=== PATIENT | female | born 1940 ===

== ENCOUNTER 2024-03-22 13:59 | Outpatient (AMB) | payer MEDICARE, SELFPAY ==
--- NOTE | 2024-03-22 14:21 | A.OFFVIS_ITS ---
Vital Signs 03/22/24 14:26 Height 4 ft 10 in Weight 132 lb BMI 27.6 BP 126/72 Blood Pressure Location Lt brachial Position Sitting Respiration 16 Pulse 75 Pulse Source Pulse Oximeter Pulse Oximetry (%) 95 Oxygen Delivery Method Room Air Intake Visit Reasons: ENP Parkinson - Could not LVM Intake Note: Pt presents to the office for new pt evaluation for Parkinson's. Graduate Research Assistant Required: Yes Graduate Research Assistant Name: Daughter- Tracy Allergies Penicillins Allergy (Mild, Verified 03/22/24 14:22) Rash tramadol Allergy (Mild, Verified 03/22/24 14:22) Hallucinations Medication List - Last Reconciled 03/22/24 by Kimi Meyers MD apixaban (Eliquis) 5 mg PO BID calcium carbonate (Calcium 600) 600 mg PO DAILY ibuprofen (Advil Miguel Strength) 200 mg PO Q6-8H PRN levothyroxine (Synthroid) 88 mcg PO DAILY losartan 100 mg PO DAILY metoprolol succinate ER 25 mg PO DAILY octreotide,microspheres ER (Sandostatin LAR Depot) 20 mg IM Q4W sennosides (Senokot) 8.6 mg PO DAILY HPI Comments Details: 84y/o left handed female comes for further management of Parkinsons disease SHe was diagnosed with Parkinson Disease Sep [address] Du at [facility] . Her initial symptoms were slowness , gait difficulty speech problems etc. ENEDELIA was positive for Parkinsons. she was started on carbidopa/levodopa but had a fall after her first dose so was discontinued . SHe denies memory issues but has some word finding difficulty. she has some dreams , vivid , sleep talks . Dreams about relatives. she denies hallucinations. Mood is stable she is not motivated. Speech- softer, hard to understand Drooling-none Handwriting is smaller Handling utensils- harder , slower Dressing- needs help and is slower Needs help with shower Has trouble changing positions in bed she uses a walker for past 2 years .she has frequent falls . she has constipation . No bladder issues No double vision No dizziness No family h/o parkinsons No h/o head injury , exposure to pesticides , no exposure to neuroleptics, depakote or reglan [facility] Medical History (Updated 03/22/24 @ 15:02 by Kimi Meyers MD) Multifactorial gait disorder Parkinson's disease without dyskinesia Falls frequently Hypothyroidism HTN (hypertension) Obstructive sleep apnea Pulmonary embolism Diastolic dysfunction Lung nodules Hemorrhoids Diverticulosis Hyperlipidemia Syncope Osteoporosis Surgical History History of hip surgery H/O total hysterectomy Family History Father No problems noted. Mother No problems noted. Daughter Ovarian ca Breast CA Daughter TIA (transient ischemic attack) Social History Household Members: None Housing: Apartment Alcohol intake: never Patient Tobacco Use Status: Never used Tobacco Physical Exam Vital Signs: Last Vital Signs Pulse 75 03/22/24 14:26 Resp 16 03/22/24 14:26 BP 126/72 03/22/24 14:26 Pulse Ox 95 03/22/24 14:26 Oxygen Delivery Method Room Air 03/22/24 14:26 BMI result Body Mass Index 27.6 Const General: cooperative, healthy appearing, comfortable and no acute distress Nutritional Appearance: average body habitus Orientation/consciousness: patient oriented x3 Eyes Pupils: Equal, round and reactive pupils present Neuro Other: No tremors Severe hypophonia Moderate bradykinesia Right UE 2 cog wheel rigidity Decreased FFM and foot taps sheron Decreased Upgaze and down gaze Gait - needed help to stand fro wheel chair , walked with walker , narrow based off balance. slowness General: patient oriented x3, moves all extremities and no focal motor deficits Cranial nerves: Yes Facial sensation intact/muscles of mastication intact, Yes Equal, round and reactive pupils present, Yes Nystagmus not present, Yes Normal facial strength present and Yes Midline tongue present Cognition (Neuro): normal cognition Motor exam (neuro): 5/5 motor strength present throughout Deep tendon reflexes (DTR's): Right triceps reflex intensity grade: 1+, Left triceps reflex intensity grade: 1+, Rt Biceps (C5, C6): 1+, Left biceps reflex intensity grade: 1+, Right brachioradialis reflex intensity grade: 1+, Left brachioradialis reflex intensity grade: 1+, Right patellar reflex intensity grade: 1+ and Left patellar reflex intensity grade: 1+ Assessment & Plan Assessment & Plan (1) Parkinson's disease without dyskinesia: Comment: ? Progressive supranuclear palsy Code(s): G20.A1 - Parkinson's disease without dyskinesia, without mention of fluctuations Category: Medical (2) Multifactorial gait disorder: Code(s): R26.89 - Other abnormalities of gait and mobility Category: Medical Plan Reviewed CT scan ENEDELIA and Neurology report from [facility] for review I will trial her on carbidopa/levodopa 25/100 1 /2 tab tid Fall prevention discussed Patient has help for 3 hrs a day and lives alone. Discussed with daughter that due to her falls she needs more supervision . she will call [employer] for more [employer] hours Coding Level of Care Code New Pt Level 4 (97855) Complex EM visit Add On G2211 Diagnoses Parkinson's disease without dyskinesia G20.A1 Multifactorial gait disorder R26.89
[2024-03-22 14:26] VITALS: BP 126/72; PULSE 75; RESP 16; O2SAT 95; BMI 27.6
== END 2024-03-22 15:12 | disposition home or self-care (01) ==
PROVIDERS: PCP Internal Medicine; Visit Provider Psychiatry & Neurology Neurology
DX: G20.A1 Parkinson's disease without dyskinesia, without mention of fluctuations (principal); R26.89 Other abnormalities of gait and mobility
CPT/HCPCS: 99204; G2211

== ENCOUNTER → 2024-03-22 13:59 | Outpatient (BNVA) | payer MEDICARE, SELFPAY | PROVIDERS: PCP Internal Medicine; Visit Provider Psychiatry & Neurology Neurology | DX: G20.A1 Parkinson's disease without dyskinesia, without mention of fluctuations (principal); R26.89 Other abnormalities of gait and mobility | CPT/HCPCS: 99202 ==

== ENCOUNTER 2024-07-13 09:24 | Outpatient (AMB) | payer MEDICARE, SELFPAY ==
--- NOTE | 2024-07-13 09:26 | A.OFFVIS_ITS ---
Vital Signs 07/13/24 09:28 Height 4 ft 10 in Weight 130 lb BMI 27.2 BP 120/70 Blood Pressure Location Rt brachial Position Sitting Respiration 17 Pulse 56 Pulse Source Pulse Oximeter Pulse Oximetry (%) 96 Oxygen Delivery Method Room Air Intake Visit Reasons: follow up Parkinson - CONF Intake Note: Pt presents to the office for 4 month follow up for Parkinson's. Textile Screen Maker Required: No Allergies Penicillins Allergy (Mild, Verified 07/13/24 09:27) Rash tramadol Allergy (Mild, Verified 07/13/24 09:27) Hallucinations Medication List - Last Reconciled 07/13/24 by Kimi Meyers MD apixaban (Eliquis) 5 mg PO BID calcium carbonate (Calcium 600) 600 mg PO DAILY ibuprofen (Advil Miguel Strength) 200 mg PO Q6-8H PRN levothyroxine (Synthroid) 88 mcg PO DAILY losartan 100 mg PO DAILY metoprolol succinate ER 25 mg PO DAILY octreotide,microspheres ER (Sandostatin LAR Depot) 20 mg IM Q4W rasagiline 1 mg PO DAILY sennosides (Senokot) 8.6 mg PO DAILY HPI Comments Details: 84y/o left handed female comes for follow up of Parkinsons disease.she is in [facility] term facility now an dis doing good. No falls. she is mostly wheelchair bound She garcía s2 [employer] classes a week she could not tolerate carbidopa/levodopa. History from initial visit- SHe was diagnosed with Parkinson Disease Sep [address] Du at [facility] . Her initial symptoms were slowness , gait difficulty speech problems etc. ENEDELIA was positive for Parkinsons. she was started on carbidopa/levodopa but had a fall after her first dose so was discontinued . SHe denies memory issues but has some word finding difficulty. she has some dreams , vivid , sleep talks . Dreams about relatives. she denies hallucinations. Mood is stable she is not motivated. Speech- softer, hard to understand Drooling-none Handwriting is smaller Handling utensils- harder , slower Dressing- needs help and is slower Needs help with shower Has trouble changing positions in bed she uses a walker for past 2 years .she has frequent falls . she has constipation . 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 Mother No problems noted. Daughter Ovarian ca Breast CA Daughter TIA (transient ischemic attack) Social History Household Members: None Housing: Apartment Alcohol intake: never Patient Tobacco Use Status: Never used Tobacco Physical Exam Vital Signs: Last Vital Signs Pulse 56 07/13/24 09:28 Resp 17 07/13/24 09:28 BP 120/70 07/13/24 09:28 Pulse Ox 96 07/13/24 09:28 Oxygen Delivery Method Room Air 07/13/24 09:28 BMI result Body Mass Index 27.2 Const General: cooperative, healthy appearing, comfortable and no acute distress Nutritional Appearance: average body habitus Orientation/consciousness: patient oriented x3 Eyes Pupils: Equal, round and reactive pupils present Neuro Other: No tremors Moderate hypophonia Moderate bradykinesia Right UE 2 cog wheel rigidity Decreased FFM and foot taps sheron R>L Decreased Upgaze and down gaze General: patient oriented x3, moves all extremities and no focal motor deficits Cranial nerves: Yes Facial sensation intact/muscles of mastication intact, Yes Equal, round and reactive pupils present, Yes Nystagmus not present, Yes Normal facial strength present and Yes Midline tongue present Cognition (Neuro): normal cognition Motor exam (neuro): 5/5 motor strength present throughout Assessment & Plan Assessment & Plan (1) Parkinson's disease without dyskinesia: Comment: ? Progressive supranuclear palsy Code(s): G20.A1 - Parkinson's disease without dyskinesia, without mention of fluctuations Category: Medical Qualifiers: Fluctuating manifestations: without fluctuating manifestations Qualified Code(s): G20.A1 - Parkinson's disease without dyskinesia, without mention of fluctuations (2) Multifactorial gait disorder: Code(s): R26.89 - Other abnormalities of gait and mobility Category: Medical Plan ENEDELIA and Neurology report from [facility] for review PT and speech therapy I will trial her on Rasagiline 1mg qd Fall prevention discussed Medications: New rasagiline 1 mg PO DAILY 30 tabs 0RF Discontinued carbidopa-levodopa 25-100 mg Discontinued Reason: Patient no longer taking 0.5 tabs PO TID 90 tabs 2RF Coding Level of Care Code Est Pt Level 4 (06701) Complex EM visit Add On G2211 Diagnoses Parkinson's disease without dyskinesia or fluctuating manifestations G20.A1 Fluctuating manifestations: without fluctuating manifestations Multifactorial gait disorder R26.89
[2024-07-13 09:28] VITALS: BP 120/70; PULSE 56; RESP 17; O2SAT 96; BMI 27.2
== END 2024-07-13 09:51 | disposition home or self-care (01) ==
PROVIDERS: PCP Internal Medicine; Visit Provider Psychiatry & Neurology Neurology
DX: G20.A1 Parkinson's disease without dyskinesia, without mention of fluctuations (principal); R26.89 Other abnormalities of gait and mobility
CPT/HCPCS: 99214; G2211

== ENCOUNTER → 2024-07-13 09:24 | Outpatient (BNVA) | payer MEDICARE, SELFPAY | PROVIDERS: PCP Internal Medicine; Visit Provider Psychiatry & Neurology Neurology | DX: G20.A1 Parkinson's disease without dyskinesia, without mention of fluctuations (principal); R26.89 Other abnormalities of gait and mobility | CPT/HCPCS: 99212 ==

== ENCOUNTER 2025-01-27 09:44 | Outpatient (AMB) | payer MEDICARE, SELFPAY ==
--- NOTE | 2025-01-27 09:47 | MHC.OFFVIS ---
Vital Signs 01/27/25 09:51 Height 4 ft 10 in Weight 124 lb BMI 25.9 Pulse 60 Pulse Source Pulse Oximeter Pulse Oximetry (%) 98 Oxygen Delivery Method Room Air Intake Visit Reasons: follow up Parkinson Intake Note: follow up trial rasagiline. ENEDELIA scan [facility] 09/11/23 speech & PT done at facility requested copy to be faxed over. Allergies Penicillins Allergy (Mild, Verified 01/27/25 10:00) Rash tramadol Allergy (Mild, Verified 01/27/25 10:00) Hallucinations HPI Comments Details: 85y/o left handed female comes for follow up of Parkinsons disease.she is in [facility] term facility now and is doing good. No falls. she is mostly wheelchair bound She does 2 [employer] classes a week she could not tolerate carbidopa/levodopa. History from initial visit- SHe was diagnosed with Parkinson Disease Sep [address] Du at [facility] . Her initial symptoms were slowness , gait difficulty speech problems etc. ENEDELIA was positive for Parkinsons. she was started on carbidopa/levodopa but had a fall after her first dose so was discontinued . SHe denies memory issues but has some word finding difficulty. she has some dreams , vivid , sleep talks . Dreams about relatives. she denies hallucinations. Mood is stable she is not motivated. Speech- softer, hard to understand Drooling-none Handwriting is smaller Handling utensils- harder , slower Dressing- needs help and is slower Needs help with shower Has trouble changing positions in bed she uses a walker for past 2 years .she has frequent falls . she has constipation . No bladder issues No double vision No dizziness No family h/o parkinsons No h/o head injury , exposure to pesticides , no exposure to neuroleptics, depakote or reglan [facility] Medical History Cholelithiases Multifactorial gait disorder Parkinson's disease without dyskinesia Falls frequently Hypothyroidism HTN (hypertension) Obstructive sleep apnea Pulmonary embolism Diastolic dysfunction Lung nodules Hemorrhoids Diverticulosis Hyperlipidemia Syncope Osteoporosis Surgical History History of hip surgery H/O total hysterectomy Family History Father No problems noted. Mother No problems noted. Daughter Ovarian ca Breast CA Daughter TIA (transient ischemic attack) Social History Household Members: None Housing: Apartment Alcohol intake: never Patient Tobacco Use Status: Never used Tobacco Physical Exam Vital Signs: Last Vital Signs Pulse 60 01/27/25 09:51 Pulse Ox 98 01/27/25 09:51 Oxygen Delivery Method Room Air 01/27/25 09:51 Const General: cooperative, healthy appearing, comfortable and no acute distress Nutritional Appearance: average body habitus Orientation/consciousness: patient oriented x3 Eyes Pupils: Equal, round and reactive pupils present Neuro Other: No tremors Moderate to severe hypophonia Moderate bradykinesia Right UE 2 cog wheel rigidity Decreased FFM and foot taps sheron R>L Decreased Upgaze and down gaze General: patient oriented x3, moves all extremities and no focal motor deficits Cranial nerves: Yes Facial sensation intact/muscles of mastication intact, Yes Equal, round and reactive pupils present, Yes Nystagmus not present, Yes Normal facial strength present and Yes Midline tongue present Cognition (Neuro): normal cognition Motor exam (neuro): 5/5 motor strength present throughout Assessment & Plan Assessment & Plan (1) Parkinson's disease without dyskinesia: Comment: ? Progressive supranuclear palsy Code(s): G20.A1 - Parkinson's disease without dyskinesia, without mention of fluctuations Category: Medical Qualifiers: Fluctuating manifestations: without fluctuating manifestations Qualified Code(s): G20.A1 - Parkinson's disease without dyskinesia, without mention of fluctuations (2) Multifactorial gait disorder: Code(s): R26.89 - Other abnormalities of gait and mobility Category: Medical Plan ENEDELIA scan report from 2022 - shows sheron decrease duptake c/w parkinsons, PSP , MSa etc PT to help with ROM . Speech therapy Continue Rasagiline 1mg qd Fall prevention discussed Coding Level of Care Code Est Pt Level 4 (42084) Complex EM visit Add On G2211 Diagnoses Parkinson's disease without dyskinesia or fluctuating manifestations G20.A1 Fluctuating manifestations: without fluctuating manifestations Multifactorial gait disorder R26.89
[2025-01-27 09:51] VITALS: PULSE 60; O2SAT 98; BMI 25.9
--- OUTSIDE RECORDS SUMMARY | 2025-01-27 11:54 | XMS_ITS | Clinical Summary ---
Author Organization [facility] Address [address] [place] [address] Care Team Providers Care Director Internal Audit Name Role Phone Rosa Zapata MD Primary Care Provider [phone] Allergies Active Allergy Reactions Criticality Noted Date Comments Penicillins 04/13/2024 Tramadol 04/13/2024 Medications Medication Sig Dispensed Refills Start Date End Date Status metoprolol succinate (TOPROL-XL) 24 hr tablet 25 mg Take by mouth daily. 0 Active levothyroxine (SYNTHROID) tablet 88 mcg Take 1 tablet (88 mcg total) by mouth every morning on an empty stomach. 0 Active Calcium Carb-Cholecalciferol (CALCIUM 600+D3 PO) Take by mouth. 0 A ctive Octreotide Acetate (SANDOSTATIN IJ) Inject as directed every 28 days. 0 Active apixaban (ELIQUIS) 5 MG TABS tablet Take by mouth every 12 (twelve) hours. 0 Active polyethylene glycol (MIRALAX) 17 g packet Take 17 g by mouth daily. 0 Active losartan (COZAAR) tablet 25 mg Take 1 tablet (25 mg total) by mouth daily. 0 Active docusate sodium (COLACE) 100 MG capsule Take 1 capsule (100 mg total) by mouth 2 (two) times a day. 0 Active magnesium hydroxide (MILK OF MAGNESIA) 400 MG/5ML suspension Take by mouth daily as needed for constipation. 0 Active acetaminophen (TYLENOL) 325 MG tablet Take 2 tablets (650 mg total) by mouth every 6 (six) hours as needed for pain. 0 Active Active Problems No known active problems Immunizations Name Administration Dates Next Due Covid-19 (Pfizer) Dilution Required 08/21/2021,0 12/10/2020,11/19/2020 Social History Tobacco Use Types Packs/Day Years Used Date Smoking Tobacco: Never Smokeless Tobacco: Never Tobacco Cessation:Counseling Given: Not Answered Alcohol Use Standard Drinks/Week Comments Not Currently 0 (1 standard drink = 0.6 oz pur e alcohol) Sex and Gender Information Value Date Recorded Sex Assigned at Not on file Gender Identity Not on file Sexual Orientation Not on file Job Start Date Occupation Industry Not on file Not on file Not on file Last Filed Vital Signs Vital Sign Reading Time Taken Comments Blood Pressure 132/59 08/03/2024 11:02 AM EDT Pulse 58 08/03/2024 11:02 AM EDT Temperature 36.2 ??C (97.2 ??F) 08/03/2024 11:02 AM E DT Respiratory Rate - - Oxygen Saturation 97% 08/03/2024 11:02 AM EDT Inhaled Oxygen Concentration - - Weight 59 kg (130 lb) 08/03/2024 11:02 AM EDT Height 147.3 cm (4' 10 ) 04/13/2024 11:17 AM EDT Body Mass Index 27.17 04/13/2024 11:17 AM EDT Plan of Treatment Health Maintenance Due Date Last Done Comments Depression Screening 1954 Preventative Health Evaluation 01/05/1960 Shingrix-Zoster Vaccine (1 o f 2) 01/05/1992 Fall Risk Assessment 2007 Osteoporosis Screening (DEXA Scan) 2007 RSV Adult > 60+ Yrs or (1 - 1-dose 75+ series) 2017 COVID-19 Vaccine (2023-2 5 season) 2024 08/21/2021, 12/10/2020, 11/19/2020 Influenza Vaccine (#1) 2024 , 08/30/2018, 08/01/2016 DTap / Tdap / Td (2 - Td or Tdap) 03/06/2031 03/06/2021 Pneumococcal Vaccine Completed 02/19/2023, 12/31/2021, 01/12/2008 Hepatitis B Vaccines Aged Out No long er eligible based on patient's age to complete this topic RSV Ped < 20 months Aged Out No longe r eligible based on patient's age to complete this topic Care Teams Director Internal Audit Relationship Specialty Start Date End Date Rosa Zapata MD [address] [facility] [place] [address] PCP - General Hematology and Oncology 03/01/24
== END 2025-01-27 10:21 | disposition home or self-care (01) ==
LOC: HO.HSMS 09:45
PROVIDERS: PCP Internal Medicine; Visit Provider Psychiatry & Neurology Neurology
DX: G20.A1 Parkinson's disease without dyskinesia, without mention of fluctuations (principal); R26.89 Other abnormalities of gait and mobility
CPT/HCPCS: 99214; G2211

== ENCOUNTER → 2025-01-27 09:44 | Outpatient (BNVA) | payer MEDICARE, SELFPAY | PROVIDERS: PCP Internal Medicine; Visit Provider Psychiatry & Neurology Neurology | DX: G20.A1 Parkinson's disease without dyskinesia, without mention of fluctuations (principal); R26.89 Other abnormalities of gait and mobility | CPT/HCPCS: 99212 ==